=== PATIENT | female | born 1980 | race Caucasian/White ===

== ENCOUNTER → 2018-07-04 | Outpatient (CLI) | payer OTHER ==
--- NOTE | 2018-07-04 09:13 | DIAGNOSTIC IMAGING REPORT ---
LUMBAR SPINE 5 VIEWS CLINICAL HISTORY: Low back pain. FINDINGS: 5 views of the lumbar spine are obtained. No prior studies are available for comparison at the time of dictation. The skeletal structures are well mineralized. There is no radiographic evidence of fracture or malalignment. Vertebral body height and alignment are maintained. The transverse and spinous processes are intact. There is no evidence of spondylolysis. Mild disc space narrowing seen at L5-S1. The remaining intervertebral disc spaces are well-maintained. The visualized bony pelvis appears intact. There is a nonobstructed abdominal bowel gas pattern noting moderate colonic fecal retention. IMPRESSION: No acute bony abnormality is seen involving the lumbosacral spine. Electronically signed by: Gomez Anglin M.D. 07/04/2018 9:11 AM Dictated Date/Time: 07/04/2018 9:11 AM
--- NOTE | 2018-07-04 09:19 | DIAGNOSTIC IMAGING REPORT ---
L HIP UNILATERAL 2 VIEWS, R HIP UNILATERAL 2 VIEWS CLINICAL HISTORY: 38 years-old Female presenting with HIP AND BACK PAIN. TECHNIQUE: Frontal and frog-leg lateral views of the bilateral hips were obtained. COMPARISON: None. FINDINGS: Right hip: Hip joint congruent. Visualized portion of the bony pelvis intact. Femoral neck intact. No acute fracture or malalignment. No advanced degenerative change. Mild sclerosis adjacent to the right sacroiliac joint suggested. No radiographic soft tissue abnormality. Left hip: Hip joint congruent. Visualized portion of the bony pelvis intact. Femoral neck intact. No acute fracture or malalignment. No advanced degenerative change. Sclerosis adjacent to the left sacroiliac joint suggested. No radiographic soft tissue abnormality. IMPRESSION: 1. No acute osseous injury or advanced degenerative change of the right or left hip. 2. 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 Electronically signed by: Franco Combs M.D. 07/04/2018 9:18 AM Dictated Date/Time: 07/04/2018 9:14 AM
== END | disposition home or self-care (01) ==
LOC: C.RADBC 08:35
PROVIDERS: ATTEND Family Medicine
DX: M54.5 Low back pain (principal); M25.552 Pain in left hip; M25.551 Pain in right hip